=== PATIENT | female | born 1990 | race Asian ===

== ENCOUNTER 2019-01-15 06:38 | Inpatient (IN) | payer OTHER ==
[2019-01-15] MEDS ORDERED: Lactated Ringers 1000 ML Bag* 1,000 ML IV ONE ×2 (08:28→10:44)
[2019-01-15] MEDS ORDERED: Buffered Lidocaine 1% SYRIN* 1 ML/SYRINGE INTRADERM ONE (08:28)
--- NOTE | 2019-01-15 08:30 | HP ---
General Information - Reason for Visit IUP @39 08/12 here for labor check - General Information Maternal Age: 28 Grav: 1 Para: 0 SAB: 0 IEA: 0 Estimated Due Date: 01/16/19 Determined By: Early Ultrasound - per 9wk US Gestational Age in Weeks/Days: 39 6/7 Maternal Blood Type and Rh: AB Positive - Results this Serology/RPR Result: Non-Reactive Rubella Result: Immune HBsAg Result: Negative HIV Result: Negative GBS Culture Result: Negative Past Medical History Delivery History: See Records Delivery History Comment: Primip Pertinent Past Medical History: Non-Contributory Pertinent Past Surgical History: None Pertinent Family History: Non-Contributory - Antepartal Records Antepartal Records: Reviewed, Complicated by: - 2VC Review of Systems Constitutional: Uncomfortable - /c UCs CV Complaint: No Respiratory: Shortness of Breath: No Gastrointestinal: Nausea - Last ate 1800 01/14. Has not felt hungry due to nausea Genitourinary: No Dysuria, No Bleeding, No Leaking Fluid Musculoskeletal: No Epigastric Pain, Contractions, Pressure Neurological: No Headache, No Visual Changes Movement: Normal Exam Allergies/Adverse Reactions: Allergies No Known Allergies Allergy (Verified 01/14/19 09:55) VS: BP 124/72, HR68, RR17, T98.3, O2 sat 100% ra - Measurements Height: 1.67 m Weight: 72.575 kg Weight in lbs: 160.395404 Body Mass Index (BMI): 26.0 Pre- Weight: 59.874 kg Weight Gained This : 28 lbs and 0 ozs - Exam Breast: Breast Exam Deferred CVA: No CVA Tenderness Extremities: No Edema Heart: Normal Rhythm/Heart Sounds HEENT: No Significant Findings Lungs: Clear Bilaterally Rectal: Rectal Exam Deferred Thyroid: No Thyromegaly - Abdominal Exam Abdomen Exam: Non-Tender, Fundal Height Consistent with Dates - Ultrasound/Biophysical Profile Ultrasound Status: Not Done Targeted Exam Findings See L&D Outpatient Visit Provider Note for Findings: N/A Estimated Weight: 7lbs by Miguel Ángel Cervical Exam: 4cm Effacement: 100% Station: 0 Presenting Part: Vertex - per Jese Veronica CNM Membrane Status: Intact Sterile Speculum Exam: not done Bleeding/Discharge: Bloody Show EFM Findings - External Monitor Findings Baseline Heart Rate: 130 External Monitor Findings: Accelerations Present, Variability Moderate Contractions: Regular, Moderate Contraction Frequency: q 2-4 mins Assessment/Plan - Assessment A: IUP @ 39 6/7 in early active labor No evidence of metabolic acidemia 2VC Desires pain relief in labor - Plan Plan: Admit - Anticipate Vaginal Delivery Plan Comment: Admit Counseled for IV placement in anticipation of epidural Anticipate progression to active labor
[2019-01-15 09:08] LABS: ABS Monocytes 0.4 10^3/ul (0-0.8); ABS Neutrophils 8.6 10^3/ul (1.5-7.7); Eosinophil % 0.1 %; Hematocrit 44 % (35-47); Hemoglobin 14.6 g/dL (12.0-16.0); Lymphocyte % 10.2 %; Mean Corpuscular HGB Conc 33 g/dL (31-36); Mean Corpuscular Hemoglobin 32 pg (27-31); Mean Corpuscular Volume 94 fL (80-97); Nucleated Red Blood Cells % 0.1; Platelet Count 107 10^3/uL (150-450); Red Blood Count 4.63 10^6 /uL (3.70-4.87); Red Cell Distribution Width 13 % (10-15)
[2019-01-15] MEDS ORDERED: Ondansetron INJ* 2 MG/ML VIAL IV PRN (09:13)
[2019-01-15 09:24] LABS: Urine Benzodiazepine Screen None Detected (None Detect); Urine Opiates Screen None Detected (None Detect)
[2019-01-15] MEDS ORDERED: OBEPIDURAL* 250 ML EPIDURAL ONE (10:02)
--- NOTE | 2019-01-15 10:10 | PN ---
Progress Note - Progress Note Date of Service: 01/15/19 Note: S: Resting comfortably in bed. Nausea improved. Family at bedside. Contractions closer together, more intense. Ready for epidural. O: VS: T 99.0, BP 116/74, HR 65 FHTs: 135 moderate variability, +accels, no decels Cx: Just placed on monitor, too soon to tell VE: deferred A: IUP 39 6/7 in active labor No evidence of metabolic acidemia P: Continue to monitor maternal/ status Anesthesia paged Await SVB
[2019-01-15] MEDS ORDERED: Lidocaine 1% MPF ** 5 ML VIAL ONE (10:38)
[2019-01-15] MEDS ORDERED: Lidocaine 1% INJ* 10 MG/ML 30 ML SDV ONE ×2 (10:39→18:37)
[2019-01-15] MEDS ORDERED: Sodium Citrate/Citric Acid* 15 ML UDC PO PRN (10:44)
[2019-01-15] MEDS ORDERED: Famotidine TAB* 20 MG PO PRN (10:44)
[2019-01-15] MEDS ORDERED: Phenylephrine 40 MCG/ML SYRINGE IV PUSH PRN ×2 (10:44)
[2019-01-15] MEDS ORDERED: Lactated Ringers 1000 ML Bag* 500 ML IV PRN ×2 (10:44)
[2019-01-15] MEDS ORDERED: Lactated Ringers 1000 ML Bag* 1,000 ML IV SCH ×3 (11:00→20:00)
[2019-01-15] MEDS ORDERED: OBEPIDURAL* 250 ML EPIDURAL SCH (11:00)
--- NOTE | 2019-01-15 11:01 | PN ---
Progress Note - Progress Note Date of Service: 01/15/19 Note: S: Pt comfortable s/p epidural placement. Unaware of UCs at this time. FOB providing support at bedside O: BP 120/73 HR 66 FHT 135bpm. Moderate variability. +Accels. No decels UCs q 2 VE v. posterior 5cm/100%/vtx 0 station amniotomy to clear fluid A: IUP at 39-6/7 in active labor No evidence of metabolic acidemia Good pain relief from epidural P: PARQ Amniotomy. Pt and FOB agree, done. Encouraged rest. Teaching re: mixer blender of Chi catheter. Continue to closely monitor maternal/ status.
--- NOTE | 2019-01-15 13:23 | PN ---
Progress Note - Progress Note Date of Service: 01/15/19 Note: S: Pt resting comfortably, able to nap. Denies feeling any pressure, not feeling contractions. Family out of the room to let her sleep. O: VS:T 98.9, BP 118/74, HR64 FHTs 140, moderate variability, +accels, no decels Contractions q 2-3 mins VE 7cm/100%/+1/clear fluid A: IUP @ 39 6/7 in active labor No evidence of metabolic acidemia P: Encourage position changes in bed. Trial of peanut ball. Close monitoring of maternal/ status. Reevaluate 1-2 hrs or prn.
[2019-01-15] MEDS ORDERED: Oxytocin in LR* 20 UNITS/1,000 ML BAG IVPB ONE (16:43)
--- NOTE | 2019-01-15 19:12 | PN ---
Progress Note - Progress Note Date of Service: 01/15/19 Note: Late entry Quick note. Pushing began 1546 with expected progression, heart tracing with occ variable decel, rapid recovery to baseline, variability maintained throughout. Anticipate progression to spontaneous vaginal delivery.
--- NOTE | 2019-01-15 19:21 | PROCNOTE ---
[facility] OB: Delivery Note - Delivery A Date of : 01/15/19 Time of : 18:13 [place] Sex: Male - "Aaron" Score 1 Minute: 8 Score 5 Minutes: 9 Gestational Age in Weeks and Days at Delivery: 39 Weeks and 6 Days Delivery Method: Spontaneous Vaginal Labor: Spontaneous Did Patient attempt ?: N/A, No Previous Amniotic Fluid: Clear Estimated Blood Loss: 350 Anesthesia/Analgesia: CEI for Labor - Placed by Dr. Taylor Delivered By: Jese Veronica - AMBERLY Simental - Nursery Level of Nursery: Regular/Bedside - Perineum Perineal Injury: 2nd Degree - Repair by Jese Veronica CNM using 3-0 Vicryl and 3 -0 Rapide. Repaired in the usual fashion, anatomy restored, good hemostasis achieved. Repaired under local infiltration 1% lidocaine and epidural analgesia. Pt tolerated well Perineal Repair: By Delivering Practioner - Additional Delivery Notes Additional Delivery Notes: Pt admitted in active labor. Received epidural per preference with excellent relief. Amniotomy to clear fluid led to expected progression in labor. Length of labor 11 hours, 21 min. Pushed x 2 hours, 27 min. liveborn male. Delivery by AMBERLY Simental. Slow, controlled delivery of head. OA to SOFY. Shoulders followed easily with maternal push. Infant vigorous with spontaneous cry. HR>110bpm. Delivered to maternal abdomen. Cord clamped x 2 and cut by FOB when pulsations ceased. Spontaneous delivery intact placenta, membranes complete. Fundus firm to massage with IV pitocin infusing. Minimal bleeding noted. Repair as above. EBL 350mL. At time of note mother and in stable condition. Breast feeding initiated.
[2019-01-15] MEDS ORDERED: Acetaminophen TAB* 325 MG PO PRN (19:33)
[2019-01-15] MEDS ORDERED: Glycerin ADULT SUPP PR PRN (19:33)
[2019-01-15] MEDS ORDERED: Oxytocin in LR* 20 UNITS/1,000 ML BAG IVPB SCH (20:00)
[2019-01-15] MEDS: Ibuprofen TAB* 600 MG PO SCH (20:30)
[2019-01-15] MEDS: Witch Hazel PAD* JAR TOPICAL PRN (20:32)
[2019-01-15] MEDS: Dibucaine 1% 28.35 GM TUBE PR PRN (20:32)
[2019-01-15] MEDS ORDERED: Ammonia Inhalant* 1 EA AMP ONE (20:38)
[2019-01-15] MEDS ORDERED: Simethicone TAB* 80 MG TAB.CHEW PO SCH (21:00)
[2019-01-16] MEDS: Docusate CAP* 100 MG PO SCH ×4 (01:08→20:10)
[2019-01-16] MEDS: Ibuprofen TAB* 600 MG PO SCH ×3 (01:47→15:59)
[2019-01-16] MEDS ORDERED: Ammonia Inhalant* 1 EA AMP ONE (02:17)
[2019-01-16 07:57] LABS: Hematocrit 31 % (35-47); Hemoglobin 10.4 g/dL (12.0-16.0); Mean Corpuscular HGB Conc 33 g/dL (31-36); Mean Corpuscular Hemoglobin 31 pg (27-31); Mean Corpuscular Volume 94 fL (80-97); Red Blood Count 3.32 10^6 /uL (3.70-4.87); Red Cell Distribution Width 13 % (10-15); White Blood Count 12.1 10^3/uL (3.5-10.8)
[2019-01-16 08:35] LABS: ABS Lymphocytes 1.2 10^3/ul (1.0-4.8); ABS Monocytes 0.8 10^3/ul (0-0.8); ABS Neutrophils 10.1 10^3/ul (1.5-7.7); Eosinophil % 0.1 %; Lymphocyte % 10.1 %; Mean Platelet Volume 10.9 fL (7.4-10.4); Platelet Count 86 10^3/uL (150-450)
[2019-01-16] MEDS ORDERED: Ferrous Gluconate TAB* 324 MG TAB PO SCH (09:00)
[2019-01-17] MEDS: Ibuprofen TAB* 600 MG PO SCH ×2 (01:15→08:56)
[2019-01-17] MEDS: Dibucaine 1% 28.35 GM TUBE PR PRN ×2 (01:17→14:30)
[2019-01-17 07:29] VITALS: BP 115/74
[2019-01-17] MEDS: Docusate CAP* 100 MG PO SCH ×2 (08:57→14:30)
[2019-01-17] MEDS: Witch Hazel PAD* JAR TOPICAL PRN (14:30)
== END 2019-01-17 15:10 | disposition home or self-care (01) | DRG 807 ==
LOC: MCHOBOUT 06:38 → MCHOB 08:24
PROVIDERS: ADMIT Midwife; ATTEND Midwife
PROC: 10E0XZZ Delivery of Products of Conception, External Approach (ICD-10-PCS; principal; 2019-01-15)
PROC: 0KQM0ZZ Repair Perineum Muscle, Open Approach (ICD-10-PCS; 2019-01-15)
PROC: 10907ZC Drainage of Amniotic Fluid, Therapeutic from Products of Conception, Via Natural or Artificial Opening (ICD-10-PCS; 2019-01-15)
DX: O69.89X0 Labor and delivery complicated by other cord complications, not applicable or unspecified (principal); Z37.0 Single live birth; O70.1 Second degree perineal laceration during delivery; Z3A.39 39 weeks gestation of pregnancy
CPT/HCPCS: 36415; 80307; 85025; 85060; 86850; 86900; 86901; A9270-GY; J2405